=== PATIENT | female | born 1985 | race Caucasian/White ===

== ENCOUNTER 2017-10-18 18:39 | Emergency (ER) | payer OTHER, SELFPAY ==
[2017-10-18 18:40] VITALS: BP 167/95; PULSE 85; RESP 16; TEMP 36.5; BMI 50.2
[2017-10-18] MEDS: proCHLORPERazine 10 MG/2 ML Vial IV (19:11)
[2017-10-18] MEDS: Ketorolac 30 MG/ML Syringe IV (19:11)
[2017-10-18] MEDS: DiphenhydrAMINE 50 MG/ML Syringe 25 MG IV (19:11)
[2017-10-18] MEDS: 0.9% Normal Saline 1,000 ML 999 ML IV (19:11)
[2017-10-18 19:51] VITALS: BP 112/75; PULSE 79; RESP 15; O2SAT 100
--- NOTE | 2017-10-18 19:51 | ED.VISSUMM ---
- ER Visit Summary Date of Service: 10/18/17 Chief Complaint: Headache History of Present Illness: The patient is a 32 F who presents with a headache. It is been present over the past week. It was gradual onset waxes and wanes. It is been worse over the past 3 days. She complains of a right temporal headache and right retro-orbital headache she does have some pain radiating down towards her neck. She has a history of prior similar headaches. She denies any URI-like illness such as congestion rhinorrhea sore throat. This is not the worst pain or headache of her life. She does report some associated photophobia. No history of head injury. No fevers. Physical Examination: Afebrile vitals are notable for blood pressure 167/95 Moist mucous membranes Neck supple Heart regular rate and rhythm Lungs are clear No temporal artery tenderness No rash Alert and oriented with no focal or lateralizing neurological deficits normal strength and sensation Test Results: Not indicated Emergency Department Course and Treatment: Patient was treated with IV fluids Toradol Compazine and Benadryl. On reevaluation she has had complete resolution. She will be discharged home to follow-up as an outpatient as needed. She understands return for new or worsening symptoms and was discharged home in good condition. Treatment Plan: [] Disposition: Discharge Impression: Headache This note was generated with [employer] dictation software. It may contain incorrect words, spelling, and punctuation that were not noted in review of the chart prior to signing ED Disposition - Plan for ED Patient: Chief Complaint: Headache Referrals: Manuel Smith DO [Primary Care Provider] -
--- NOTE | 2017-10-18 19:53 | ED.DEP ---
ED Disposition - Plan for ED Patient: Chief Complaint: Headache Instructions: ED Cephalgia Unspecified Referrals: Manuel Smith DO [Primary Care Provider] -
[2017-10-18 20:01] VITALS: BP 112/75; PULSE 72; RESP 18; O2SAT 100
== END 2017-10-18 20:02 | disposition home or self-care (01) ==
PROVIDERS: Emergency Provider Emergency Medicine; Family Provider Student in an Organized Health Care Education/Training Program; PCP Student in an Organized Health Care Education/Training Program
DX: R51 Headache (principal); Z79.899 Other long term (current) drug therapy
CPT/HCPCS: 96361; 96374; 96375; 99283; J7030; A4216